=== PATIENT | female | born 1970 | race Caucasian/White ===

== ENCOUNTER 2016-04-21 05:02 | Inpatient (IN) | payer BC, OTHER ==
[~2016-04-21] VITALS: Ht 165.1 cm; Wt 54.4 kg
[~2016-04-21 05:02] MED LIST: HALOPERIDOL LACTATE 5 MG/ML 1 ML VIAL ONE; LORAZEPAM 2 MG/ML 1 ML VIAL ONE; WARF10TA4 PO; WARF7.5T4 PO
[2016-04-21 05:29] LABS: BASO % 0.3 %; BASO ABS # 0.02 K/uL (0-0.2); COMPLETE YES; EOS % 0.3 %; IG% 0.2 %; LYMPH % 24.6 %; LYMPH ABS # 1.54 K/uL (1.2-3.4); MEAN CELL VOLUME 88.2 fL (80-100); MEAN CORPUSCULAR HEMOGLOBIN 30.2 pg (25-34); MEAN CORPUSCULAR HGB CONC 34.3 g/dl (32-36); MEAN PLATELET VOLUME 9.2 fL (7.4-10.4); MONO % 8.8 %; NEUT % 65.8 %; PLATELET COUNT 335 K/uL (130-400); RED BLOOD COUNT 3.97 M/uL (4.2-5.4); WHITE BLOOD COUNT 6.27 K/uL (4.8-10.8)
--- NOTE | 2016-04-21 05:29 | EMERGENCY ROOM VISIT NOTE ---
History First contact with patient: 05:16 Chief Complaint: MENTAL HEALTH EVALUATION Stated Complaint: MENTAL HEALTH History of Present Illness The patient is a 45 year old female who presents to the Emergency Room with complaints of possible psychotic break. Patient reportedly has been working on a project for the past few days. Patient had a history of the same 5 years ago in which she had an episode similar to this after not sleeping 3-4 days to Endra being do. 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 Patient reportedly went to sleep and then woke up at 3 AM and was having tangential thoughts and saying strange things like "we must connect the dots to the black box." Patient will not provide me any further history. Per patient reportedly has a history of factor V Leiden and has been off her Coumadin for the past 3 or 4 days. Review of Systems Review of systems are limited due to patient's current mental state Past Medical/Surgical History Patient has a history of pulmonary embolus and history of DVT history factor V Leiden Social History Smoking Status: Never Smoker Current/Historical Medications No Active Prescriptions or Reported Meds Allergies Coded Allergies: Diphtheria Toxoid (Verified Allergy, Unknown, QUESTIONABLE CHILDHOOD RXN TO TETANUS/DIPHTHERIA/PERTUSSIS, 06/24/15) Replaces TETANUS/DIPHT Tetanus Toxoid (Verified Allergy, Unknown, QUESTIONABLE CHILDHOOD RXN TO TETANUS/DIPHTHERIA/PERTUSSIS, 06/24/15) Replaces TETANUS/DIPHT Physical Exam Vital Signs Date Time Temp Pulse Resp B/P Pulse Ox O2 Delivery O2 Flow Rate FiO2 04/21/16 05:09 119 Vital signs reviewed Physical Exam General alert conversant however unable to give me full history HEENT the within normal limits Heart regular rate and rhythm Lungs clear to auscultation bilaterally Soft abdomen nontender Extremities no clubbing cyanosis or edema Neuro alert nonfocal however he is currently yelling at staff Psych has tangential thoughts, we'll not provide me any further psychiatric history however does not state suicidal ideation Skin no rash Medical Decision & Procedures ER Provider Diagnostic Interpretation: CT of the brain - per radiology no intracranial hemorrhage or mass effect or midline shift Laboratory Results 04/21/16 05:13 Red Blood Count 3.97, Mean Corpuscular Volume 88.2, Mean Corpuscular Hemoglobin 30.2, Mean Corpuscular Hemoglobin Concent 34.3, Mean Platelet Volume 9.2, Neutrophils (%) (Auto) 65.8, Lymphocytes (%) (Auto) 24.6, Monocytes (%) (Auto) 8.8, Eosinophils (%) (Auto) 0.3, Basophils (%) (Auto) 0.3, Neutrophils # (Auto) 4.13, Lymphocytes # (Auto) 1.54, Monocytes # (Auto) 0.55, Eosinophils # (Auto) 0.02, Basophils # (Auto) 0.02 04/21/16 05:13 Test 04/21/16 05:13 04/21/16 05:47 04/21/16 05:50 White Blood Count 6.27 K/uL (4.8-10.8) Red Blood Count 3.97 M/uL (4.2-5.4) Hemoglobin 12.0 g/dL (12.0-16.0) Hematocrit 35.0 % (37-47) Mean Corpuscular Volume 88.2 fL (80-100) Mean Corpuscular Hemoglobin 30.2 pg (25-34) Mean Corpuscular Hemoglobin Concent 34.3 g/dl (32-36) Platelet Count 335 K/uL (130-400) Mean Platelet Volume 9.2 fL (7.4-10.4) Neutrophils (%) (Auto) 65.8 % Lymphocytes (%) (Auto) 24.6 % Monocytes (%) (Auto) 8.8 % Eosinophils (%) (Auto) 0.3 % Basophils (%) (Auto) 0.3 % Neutrophils # (Auto) 4.13 K/uL (1.4-6.5) Lymphocytes # (Auto) 1.54 K/uL (1.2-3.4) Monocytes # (Auto) 0.55 K/uL (0.11-0.59) Eosinophils # (Auto) 0.02 K/uL (0-0.5) Basophils # (Auto) 0.02 K/uL (0-0.2) RDW Standard Deviation 39.7 fL (36.4-46.3) RDW Coefficient of Variation 12.3 % (11.5-14.5) Immature Granulocyte % (Auto) 0.2 % Immature Granulocyte # (Auto) 0.01 K/uL (0.00-0.02) Prothrombin Time 11.4 SECONDS (9.0-12.0) Prothromb Time International Ratio 1.1 (0.9-1.1) Anion Gap 12.0 mmol/L (3-11) Estimated GFR () 106.6 Estimated GFR (Non- 91.9 BUN/Creatinine Ratio 9.2 (10-20) Calcium Level 8.6 mg/dl (8.5-10.1) Total Bilirubin 0.5 mg/dl (0.2-1) Direct Bilirubin 0.1 mg/dl (0-0.2) Aspartate Amino Transf (AST/SGOT) 13 U/L (15-37) Alanine Aminotransferase (ALT/SGPT) 18 U/L (12-78) Alkaline Phosphatase 44 U/L (45-117) Total Protein 7.0 gm/dl (6.4-8.2) Albumin 4.0 gm/dl (3.4-5.0) Thyroid Stimulating Hormone (TSH) 0.973 uIu/ml (0.300-4.500) Ethyl Alcohol mg/dL < 3.0 mg/dl (0-3) Bedside Glucose 121 mg/dl (70-90) Medications Administered Medications (Trade) Dose Ordered Sig/Chapis Route Start Time Stop Time Status Last Admin Dose Admin Lorazepam (Ativan Inj) 2 mg STK-MED ONCE .ROUTE 04/21/16 04:56 04/21/16 04:59 DC 04/21/16 04:56 2 MG Haloperidol Lactate (Haldol Inj) 10 mg STK-MED ONCE .ROUTE 04/21/16 04:56 04/21/16 04:59 DC 04/21/16 04:56 10 MG Medical Decision Psychotic break, anxiety, alteration in mental status, metabolic derangement Patient has been given Ativan and Haldol. I have spoken with her at bedside regarding the patient's evaluation. Patient will be evaluated by crisis , the patient's is petitioning for 302. I have spoken to the patient's at bedside at 6:20 AM, he is currently rating his summary and the patient will be evaluated by the crisis counselors for disposition. 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 Pulmonary (PCP) Patient Instructions My [facility]
[2016-04-21 05:38] LABS: INR 1.1 (0.9-1.1); PROTHROMBIN TIME (PATIENT) 11.4 SECONDS (9.0-12.0)
[2016-04-21 05:49] LABS: BLOOD UREA NITROGEN 7 mg/dl (7-18); CREATININE 0.77 mg/dl (0.60-1.20); GLUCOSE 142 mg/dl (70-99)
[2016-04-21 05:50] LABS: ALT/SGPT 18 U/L (12-78); AST/SGOT 13 U/L (15-37); BUN/CREATININE RATIO 9.2 (10-20); CALCIUM 8.6 mg/dl (8.5-10.1); CARBON DIOXIDE 23 mmol/L (21-32); CHLORIDE 106 mmol/L (98-107); SODIUM 141 mmol/L (136-145)
[2016-04-21] MEDS ORDERED: POTASSIUM CHLORIDE 10 MEQ TABCR PO STA (05:59)
[2016-04-21 06:00] LABS: ALKALINE PHOSPHATASE 44 U/L (45-117); THYROID STIMULATING HORMONE 0.973 uIu/ml (0.300-4.500)
[2016-04-21 06:25] LABS: URINE APPEARANCE CLEAR (CLEAR); URINE BILIRUBIN NEG (NEG); URINE COLOR YELLOW; URINE NITRITE NEG (NEG); URINE SPECIFIC GRAVITY 1.011 (1.000-1.030); UROBILINOGEN NEG (NEG)
[2016-04-21 06:35] LABS: MANUAL MICROSCOPIC REQUIRED? NO; REVIEW REQ? NO
--- NOTE | 2016-04-21 06:41 | DIAGNOSTIC IMAGING REPORT ---
HEAD CT NONCONTRAST CT DOSE: 537.48 mGy.cm HISTORY: Mental status change ams TECHNIQUE: Multiaxial CT images of the head were performed without the use of intravenous contrast. Comparison: None. Findings: The paranasal sinuses and mastoid air cells are clear. The calvarium and skull base are intact. The ventricles and sulci are within normal limits. There is no mass, hematoma, midline shift, or acute infarct. Impression: No acute intracranial abnormality. Electronically signed by: Alvin Sanchez M.D. 04/21/2016 6:40 AM Dictated Date/Time: 04/21/2016 6:39 AM
[2016-04-21 06:59] LABS: BENZODIAZEPINE, URINE NEG (NEG); COCAINE,URINE NEG (NEG); PHENCYCLIDINE, URINE NEG (NEG)
[2016-04-21] MEDS ORDERED: POTASSIUM CHLORIDE 10 MEQ TABCR ONE (09:03)
[2016-04-21 15:06] VITALS: O2SAT 98
--- NOTE | 2016-04-21 15:35 | EMERGENCY ROOM VISIT NOTE ---
ED Visit Note First contact with patient: 15:34 I received this patient at change of shift signout from Dr. Ribeiro. Please see her note for complete history and physical. The patient was medically cleared previously. She was awaiting final psychiatric clearance and disposition. The patient was evaluated by the nursing from [address] [place] [address]. She was felt to be a good candidate for voluntary admission and at this time she has been admitted to the mental health floor on [address] [place] [address].
[2016-04-21] MEDS ORDERED: LORAZEPAM 1 MG TAB PO PRN (15:45)
[2016-04-21] MEDS ORDERED: ALUMINUM/MAGNESIUM SUSP 30 ML UDC PO PRN (15:45)
[2016-04-21] MEDS ORDERED: BISMUTH SUBSALICYLATE PER ML OMNICELL CHARGE PO PRN (15:45)
[2016-04-21] MEDS ORDERED: ACETAMINOPHEN 325 MG TAB PO PRN (15:45)
[2016-04-21] MEDS ORDERED: SODIUM CHLORIDE 0.65% NA SOLN 45 ML (OCEAN) PRN (15:45)
[2016-04-21] MEDS ORDERED: HALOPERIDOL 5 MG TAB PO PRN (15:45)
[2016-04-21] MEDS ORDERED: hydrOXYzine HCL 25 MG TAB PO PRN ×2 (15:45)
[2016-04-21] MEDS ORDERED: MAGNESIUM HYDROXIDE SUSP 30 ML UDC PO PRN (15:45)
[2016-04-21 17:38] VITALS: BP 117/68; TEMP 37.1; BMI 20.0
--- NOTE | 2016-04-21 18:14 | HISTORY & PHYSICAL EXAMINATION ---
DATE OF ADMISSION: 04/21/2016 IDENTIFYING DATA: Nivia Chavez is a 45-year-old woman from [place], [place], admitted to our unit on a voluntary basis with psychotic behaviors impairing her ability to function outside of the hospital. Information is gathered from the patient, the electronic medical record, and the patient's , and considered to be reliable. CHIEF COMPLAINT: "I don't know why he brought me here." HISTORY OF PRESENT ILLNESS: Nivia Chavez is a 45-year-old woman with no past psych history of note, who was brought to the Emergency Room by her . 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 She has always been highly successful and energized, however recently she has been under additional stress and her behavior has become irregular. Apparently about 1 week ago, per the , they had a meeting with one of their partners in [place] about a particular computer project. The timeline for launch was moved up and this put additional strain on the patient. Her describes her as "obsessing" about it. The patient frequently travels to [place] where she has a condo at [facility]. She picked her up on her return flight on Monday and drove her home. He reports that she had very little sleep Monday, Monday and Monday night. When he picked her up, she was having an odd discussion about dots and boxes that did not connect to the conversation or the circumstances. She went to work on Monday and is reported to have done some minor procedures without problems. There was an indication from the that she had incorporated the word dot into one of her medical records. The became concerned about her behavior and her state of mind and worried that she would have an episode similar to 5 years ago at which time he said she did not sleep for 3 days straight and became confused and disorganized. At the time I see the patient, she has awoken from sleep. She is alert and for the most part cooperative. She is minimizing all symptoms, says she does not understand why people brought her here. She says that she remembers going to her father's house due to concerns about her father and his , her stepmother. She says her father was acting "crazy" and he called the police. When asked about the dots and boxes phrases, she indicates that these are metaphors for "solutions, programs, disease." She will not further elaborate. She also notes that when she was at the office, she noted that one of her staff had underlined a certain word in a documented and this caused her to feel suspicious, not understanding why the word would be underlined in red and was trying to figure it out. She indicates she has also been trying to "protect my assets from my " and says that they are , not living together and heading toward divorce. She denies that she has been under any additional stress from her computer work and actually minimizes this to the point of saying that she has not done any work on the computer program in weeks. She denies that she is having auditory or visual hallucinations. She says that her sleep and appetite are fine. She denies anxiety. She denies any problems with eating disordered behaviors, OCD. She denies any manic symptoms including racing thoughts, disturbed sleep, increase in goal directedness. She denies any euphoric mood. She denies suicidal thinking. She denies homicidal thinking. CURRENT MEDICATIONS: Lamisil. PAST PSYCHIATRIC HISTORY: The patient denies ever having seen a mental health professional, has never been hospitalized for mental health reasons, has never made a suicide attempt. PRIOR MEDICATION TRIALS: None. ACCESS TO GUNS: Denies. PAST MEDICAL HISTORY: 1. Factor V Leiden factor status post [place] filter. 2. Denies for personal history of head injuries or seizures. 3. Tobacco use -- none. FAMILY HISTORY: Denies for psychiatric issues, substance use or suicide. SUBSTANCE ABUSE HISTORY: The patient will drink alcohol "only rarely" and this means about 1 time per month. She has never had any problems with alcohol, never had any legal consequences as a result of alcohol. She denies the use of street drugs, organic substances, inhalants, abuse of over the counter medicines or prescription medicines now or ever in her life. Her drug screen is negative. 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 She has been to her for 7-8 years. She has no children. There are no legal concerns. Psychological trauma history is denied. MENTAL STATUS EXAMINATION: A 45-year-old woman with long dark hair that is slightly disarray. She is dressed in a sweater and jeans. She is somewhat sleepy and her eyes close at times during the interview. Gait and station are within normal limits. Motor behavior is unremarkable, no abnormal muscle movements. Speech is of normal rate, volume, and tone, although minimal. Affect is flat to irritable. Mood is "fine." Her thought process is organized and goal directed. She denies auditory or visual hallucinations but does endorse some paranoid thinking, specifically that she has to protect her assets from her , and that they are not living together and which the says is untrue. She denies suicidal or homicidal thinking. Today, she is fully oriented. Memory functions are intact. She is able to spell the word world forward and backward fluently. Fund of knowledge is intact. Her intelligence is estimated to be average to above average. Insight and judgment are currently limited. VITAL SIGNS: Temp 37.1, pulse 108, respirations 12, blood pressure 117/68, pulse ox 98% on room air. LABORATORIES: 1. CBC with diff -- notable only for slightly low RBCs 3.97, hematocrit 35.0. 2. Chem profile -- notable for potassium low at 3.0, anion gap 12.0, BUN-creatinine ratio 9.2, random glucose is 121 and 142. 3. TSH -- within normal limits at 0.973. 4. Toxicology -- negative. 5. Urinalysis -- positive for 3+ ketones, 1+ occult blood, 10-20 epithelials. 6. Coag studies -- within normal limits. IMAGING: Head CT -- no intracranial findings. REVIEW OF SYSTEMS: A full 10 systems has been reviewed and all found to be negative. PHYSICAL EXAMINATION: Exam performed by Dr. Aguillon in the Emergency Room last night has been reviewed and accepted for our purposes here on the mental health unit. PATIENT'S STRENGTHS AND NEEDS: 1. Strengths -- intelligence, successful in life ventures. 2. Needs -- life balance. RISK ASSESSMENT: 1. Risk factors -- , impaired sleep, lack of insight. 2. Protective factors -- no access to guns, no chronic mental illness, no comorbid medical conditions impairing recovery, no history of hospitalizations or suicide attempts. IMPRESSION: A 45-year-old woman admitted with psychotic symptoms. She received Haldol 10 mg and Ativan 2 mg in the ER and was able to sleep for an extended period and after that her estimated that she was 40% improved. She ultimately signed in on a voluntary basis as did not want to have her 302'd. At this point, she does not want to be on scheduled medicines but agrees to the use of p.r.n. medications if she cannot sleep or nurses interpret that her thinking appears disordered. We will order Haldol 5 mg q. 4 hours p.r.n. and Ativan 1 mg p.o. q. 4 hours p.r.n. We will ask the to visit again tomorrow to give his estimation about how close she is to baseline. DIAGNOSES: Psychosis, not otherwise specified. Differential includes delirium related to sleep disturbance, bipolar disorder. PLAN: Has been reviewed with Dr. La Huerta. Psychosis, not otherwise specified. -- Haldol 5 mg p.o. q. 4 hours p.r.n. -- Ativan 1 mg p.o. q. 4 hours p.r.n. -- Allow patient to sleep as much as possible. -- Will have visit tomorrow to estimate how close she is to baseline after 24 hours of sleep and treatment. INITIAL HOSPITAL CARE: [id number]. MTDD
--- NOTE | 2016-04-22 05:38 | EMERGENCY ROOM VISIT NOTE ---
ED Visit Note First contact with patient: 06:39 I received this pt in signout at the change of shift from Dr Aguillon, pending MH evaluation. Pt has been medically cleared. On my initial evaluation the pt was sleeping. I spoke with the pt's who feels that she requires sleep. Upon awakening several hours later, the pt was speaking with family members and "there" regarding a return to baseline. She was upset that she was in the ED, angry at the suggestion of inpatient admission. When pt was confronted about documenting "dots and boxes" in a medical record yesterday, she stated "because I was afraid this would happen." She also refers to seeing red dots on the metatarsals of a pt yesterday. Pt continues with disorganized thought, referring to a friend that was dropped off at a gas station the other day while explaining to us why this is happening to her. The pt is felt to be in need of inpatient evaluation and management. She was initially resistant to a 201 voluntary admission. Her had petitioned a 302 but requested that she was allowed to sleep and reassess. Pt was held in the ED for many hours due to family requests for sleep, many assessments from psych and myself. Pt was eventually evaluated by 3S nurse Hackett. Pt signed a 201 and was d/w Dr Huerta from psychiatry. Pt's family seems happy with this plan and agrees. Diagnosis: Acute Psychosis
[2016-04-22 06:48] VITALS: BP_SYST 112; BP_SYST 128; BP_DIAS 67; BP_DIAS 82; PULSE 65; PULSE 76; TEMP 36.8
--- NOTE | 2016-04-22 10:25 | Psychiatric Progress Notes ---
Progress Note Date of Service Apr 22, 2016. Interval History 45 yo female admitted voluntarily through the ER after presenting with impaired sleep and psychosis. Chief Complaint "Fine. I got some sleep.". Subjective Patient was seen & assessed interval progress reviewed with Treatment Team. The patient slept for over 12 hours last night. Today she says that she feels "fine". I review with her the information provided by her yesterday, specifically the conflicting information about being and protecting assets, which her says is not true. Her response is, "Well he doesn't like to admit it.". In terms of protecting her assets, she talks in very generic terms saying that that should have already happened today. I inform her that there is a meeting with her and classifications officer cc/cm today at 1300, to which she agrees. She denies SI/HI, aud/vis hallucinations and believes that she is back to normal, "I just needed some sleep". She agrees with her 's theory that she had been losing sleep, worrying about the computer project. Review of Systems Constitutional: + fatigue ENT: No dental problems, No hearing loss, No nasal symptoms, No problem reported, No sore throat, No tinnitus, No trouble swallowing, No unusual epistaxis Respiratory: No cough, No dyspnea at rest, No dyspnea on exertion, No hemoptysis, No problem reported, No shortness of breath, No sputum, No wheezing Cardiovascular: No PND, No chest pain, No claudication, No edema, No orthopnea , No palpitations, No problem reported Abdomen: No GI bleeding, No constipation, No diarrhea, No nausea, No pain, No problem reported, No vomiting Musculoskeletal: No calf pain, No joint pain, No muscle pain, No problem reported, No swelling Neurologic: No balance problems, No memory loss, No numbness/tingling, No paralysis, No problem reported, No vertigo, No weakness Integumentary: No bleeding, No color change, No itch, No new/changing skin lesions, No problem reported, No rash Sleep Information Total Hours of Sleep: 11.00 Meal Information Percent of Breakfast Consumed: 100 Percent of Dinner Consumed: 0 Mental Status Exam During interview pt is: guarded Appearance: appropriately dressed Motor behavior is: steady gait & station, no abnormal motor movements Speech: normal in rate, rhythm & volume Affect: blunted Mood is: other ("fine") Thought process: goal directed Thought content: paranoid Suicidal thought are: denied Homicidal thoughts are: denied Hallucinations: denies auditory, denies visual Cognition: memory grossly intact, attention grossly intact Intelligence estimated to be: average Insight: limited Judgement: limited Impression Admitted yesterday and has been able to get some sleep. Still appears guarded today, limiting what she is willing to say, and remains with paranoid themes about her marriage and assets. Meeting scheduled with and classifications officer cc/cm today. Will recommend psychiatric follow up. Not willing to take scheduled meds at this time. Continued Inpatient Care Inpatient care required due to the severity of her condition and risk that she will act based on delusional information. Plan (1) Brief psychotic disorder 04/22 - Continue haldol 5 mg. q 4 prn and ativan 1 mg po q4h prn psychosis/ agitation. Patient not willing to take scheduled meds - Family meeting with and classifications officer cc/cm today - Q 15 min checks for safety - Encourage participation in group and individual counseling - Recommend OP follow up - Reality orientation Visit Code E&M Code: 04178 Risk Factors Assessment : Yes /single/: No Higher / Fall in social status: No Access to guns: No Health problems: No Mental Health Diagnoses: No Substance use disorders: No Previous attempt: No Previous psychiatric stay: No Hopelessness: No Smoker: No Protective Factors Assessment : Yes Responsible for young children: No Employed: Yes Supportive family: Yes Data Vital Signs Last 24 Hrs: Date Time Temp Pulse Resp B/P Pulse Ox O2 Delivery O2 Flow Rate FiO2 04/22/16 06:48 36.8 65 14 112/67 76 128/82 04/21/16 17:38 37.1 12 117/68 04/21/16 15:06 108 12 117/68 98 Room Air Meds Administered Last 24 Hrs: Meds Administered (Past 24Hrs) Medications (Trade) Dose Ordered Sig/Chapis Route Start Time Stop Time Status Last Admin Dose Admin Lorazepam (Ativan Inj) 2 mg STK-MED ONCE .ROUTE 04/21/16 04:56 04/21/16 04:59 DC 04/21/16 04:56 2 MG Haloperidol Lactate (Haldol Inj) 10 mg STK-MED ONCE .ROUTE 04/21/16 04:56 04/21/16 04:59 DC 04/21/16 04:56 10 MG Lab Results Last 24 Hrs: 04/21/16 05:13 Red Blood Count 3.97, Mean Corpuscular Volume 88.2, Mean Corpuscular Hemoglobin 30.2, Mean Corpuscular Hemoglobin Concent 34.3, Mean Platelet Volume 9.2, Neutrophils (%) (Auto) 65.8, Lymphocytes (%) (Auto) 24.6, Monocytes (%) (Auto) 8.8, Eosinophils (%) (Auto) 0.3, Basophils (%) (Auto) 0.3, Neutrophils # (Auto) 4.13, Lymphocytes # (Auto) 1.54, Monocytes # (Auto) 0.55, Eosinophils # (Auto) 0.02, Basophils # (Auto) 0.02 04/21/16 05:13 Test 04/21/16 05:13 04/21/16 05:47 04/21/16 05:50 White Blood Count 6.27 K/uL (4.8-10.8) Red Blood Count 3.97 M/uL (4.2-5.4) Hemoglobin 12.0 g/dL (12.0-16.0) Hematocrit 35.0 % (37-47) Mean Corpuscular Volume 88.2 fL (80-100) Mean Corpuscular Hemoglobin 30.2 pg (25-34) Mean Corpuscular Hemoglobin Concent 34.3 g/dl (32-36) Platelet Count 335 K/uL (130-400) Mean Platelet Volume 9.2 fL (7.4-10.4) Neutrophils (%) (Auto) 65.8 % Lymphocytes (%) (Auto) 24.6 % Monocytes (%) (Auto) 8.8 % Eosinophils (%) (Auto) 0.3 % Basophils (%) (Auto) 0.3 % Neutrophils # (Auto) 4.13 K/uL (1.4-6.5) Lymphocytes # (Auto) 1.54 K/uL (1.2-3.4) Monocytes # (Auto) 0.55 K/uL (0.11-0.59) Eosinophils # (Auto) 0.02 K/uL (0-0.5) Basophils # (Auto) 0.02 K/uL (0-0.2) RDW Standard Deviation 39.7 fL (36.4-46.3) RDW Coefficient of Variation 12.3 % (11.5-14.5) Immature Granulocyte % (Auto) 0.2 % Immature Granulocyte # (Auto) 0.01 K/uL (0.00-0.02) Prothrombin Time 11.4 SECONDS (9.0-12.0) Prothromb Time International Ratio 1.1 (0.9-1.1) Anion Gap 12.0 mmol/L (3-11) Estimated GFR () 106.6 Estimated GFR (Non- 91.9 BUN/Creatinine Ratio 9.2 (10-20) Calcium Level 8.6 mg/dl (8.5-10.1) Total Bilirubin 0.5 mg/dl (0.2-1) Direct Bilirubin 0.1 mg/dl (0-0.2) Aspartate Amino Transf (AST/SGOT) 13 U/L (15-37) Alanine Aminotransferase (ALT/SGPT) 18 U/L (12-78) Alkaline Phosphatase 44 U/L (45-117) Total Protein 7.0 gm/dl (6.4-8.2) Albumin 4.0 gm/dl (3.4-5.0) Thyroid Stimulating Hormone (TSH) 0.973 uIu/ml (0.300-4.500) Ethyl Alcohol mg/dL < 3.0 mg/dl (0-3) Bedside Glucose 121 mg/dl (70-90) Urine Color YELLOW Urine Appearance CLEAR (CLEAR) Urine pH 6.0 (4.5-7.5) Urine Specific [place] 1.011 (1.000-1.030) Urine Protein NEG (NEG) Urine Glucose (UA) NEG (NEG) Urine Ketones 3+ (NEG) Urine Occult Blood 1+ (NEG) Urine Nitrite NEG (NEG) Urine Bilirubin NEG (NEG) Urine Urobilinogen NEG (NEG) Urine Leukocyte Esterase NEG (NEG) Urine WBC (Auto) 1-5 /hpf (0-5) Urine RBC (Auto) 0-4 /hpf (0-4) Urine Hyaline Casts (Auto) 1-5 /lpf (0-5) Urine Epithelial Cells (Auto) 10-20 /lpf (0-5) Urine Bacteria (Auto) NEG (NEG) Urine Opiates Screen NEG (NEG) Urine Methadone, Qualitative NEG (NEG) Urine Barbiturates NEG (NEG) Urine Phencyclidine (PCP) Level NEG (NEG) Ur Amphetamine/Methamphetamine NEG (NEG) MDMA (Ecstasy) Screen NEG (NEG) Urine Benzodiazepines Screen NEG (NEG) Urine Cocaine Metabolite NEG (NEG) Urine Marijuana (THC) NEG (NEG)
[2016-04-22 11:10] VITALS: BP 128/82; PULSE 65; TEMP 36.8; Ht 165.1 cm; Wt 54.4 kg
[2016-04-22] MEDS ORDERED: HLD5 PO (13:39)
[2016-04-22] MEDS ORDERED: ATV1 PO (13:39)
--- NOTE | 2016-04-22 13:56 | Discharge Instructions ---
Discharge Information Report Includes Report will include the: Discharge Instructions & Summary Admission Admission Date / Time: Apr 21, 2016 at 15:35 Reason for Admission: Psychosis Unsp Discharge Discharge Diagnosis / Problem: Brief psychotic episode Condition at Discharge: Good Discharge Goals Goal(s): Decrease discomfort, Prevent Disease Progression Activity Recommendations Activity Limitations: per Instructions/Follow-up section (Do not return to work until cleared by the undersigned, appt 04/27/16 2 pm) . Instructions / Follow-Up Instructions / Follow-Up . SPECIAL CARE INSTRUCTIONS: 1. Follow through with your scheduled aftercare appointments. If unable to keep an appointment, please call to reschedule. 2. Take your medication only as prescribed. Medication should not be changed or stopped without the approval of your doctor. In the event of worsening symptoms or concerns about side effects, contact your doctor immediately. 3. Utilize new healthy coping skills, anger management skills, and stress management skills learned during your hospitalization. Journal feelings and process them with a support person. Identify stressors or situations that may result in relapse, deterioration or inappropriate behaviors and develop a plan to deal with those issues. 4. If your coping skills are ineffective and you are in crisis, contact your outpatient providers for direction. If unable to reach your providers, please call the CAN HELP LINE AT or go to the closest Emergency Room. 5. Avoid alcohol and un-prescribed drugs. 6. You have been provided with the Mental Health Advance Directives Pamphlet for your review. AFTERCARE APPOINTMENTS: * Please call your insurance company prior to your scheduled appointment to confirm your aftercare providers are covered. Take your insurance information to your appointments. . Discharge / Aftercare Planning Primary Care Physician: Name: Dr. Gail Winters Psychiatrist: Name: none Therapist: Name Of Therapist: none Director Of Adult Epilepsy: Name: none . Follow-Up Care Plan for Follow-Up Care: The patient will see the undersigned within one week. Current Hospital Diet Patient's current hospital diet: Regular Diet Discharge Diet Recommended Diet: Regular Diet Procedures Procedures Performed: No Pending Studies Pending Studies at Discharge: No Medical Emergencies . Who to Call and When: Medical Emergencies: For questions or emergencies related to your hospital stay, please contact the Inpatient Behavioral Health Unit at [phone]. A transmission technician is on-call 29/08 for the Behavioral Health Unit for emergencies At any time you feel your situation is an emergency, you may also call 911 immediately. . Non-Emergent Contact Non-Emergency issues call your: Primary Care Provider, Psychiatrist Advance Directives Existing Advance Directive: No Do You Have an Existing Mental: No Existing Living Will: No Existing Power of Cell Operator: No Advance Directives Info Given: To Pt/S.O. Discharge Summary Admission HPI Per the Admitting provider: Please see attached H&P Hospital Course (1) Brief psychotic disorder 04/22 - Continue haldol 5 mg. q 4 prn and ativan 1 mg po q4h prn psychosis/ agitation. Patient not willing to take scheduled meds - Family meeting with and business office representative today - Q 15 min checks for safety - Encourage participation in group and individual counseling - Recommend OP follow up - Reality orientation Risk Factors Assessment : Yes /single/: No Higher / Fall in social status: No Access to guns: No Health problems: No Mental Health Diagnoses: No Substance use disorders: No Previous attempt: No Previous psychiatric stay: No Hopelessness: No Smoker: No Protective Factors Assessment : Yes Responsible for young children: No Employed: Yes Supportive family: Yes Day of Discharge Assessment COURSE OF HOSPITALIZATION: Patient admitted voluntarily through the ER after demonstrating odd behaviors and talk. provided information that she is highly driven and successful, working over 100 hrs per week. 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 He perceived her to obsess about it, losing sleep in the process, resulting in delirious behaviors and verbalizations about "dots and boxes" which are computer terms. Received haldol and ativan in the ER and was able to sleep which helped to clear her thoughts. She continued to sleep after admission to mental health, but did not receive any additional meds. Today she is denying aud/vis hallucinations, is talking coherently without references to dots and boxes, although some ideation that could be considered paranoid, about her and their relationship. Met with our social worker psychiatric, patient, her , her father and her business office representative to review events leading to admission. It was actually the father who placed the call to police which started the process of coming to the hospital. 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 Her today says that she is now back to her baseline and is comfortable taking her home. She is willing to take home some medications in the event she can't sleep or becomes disorganized again. I have asked the patient not to return to work until seen in my OP office next week to be sure that this brief psychotic episode is resolved, to which she agrees. Today the patient is casually and appropriately dressed and groomed. Gait and station WNL. eye contact in minimal but appropriate. Affect is flat and congruent with her irritability at being in the hospital. Speech is of normal rate volume and tone. thoughts are organized, goal directed and without overt evidence of thought disorder. Recent/remote memory intact per conversation. Intelligence estimated to be average. Insight and judgement improved over admission. Laboratory 04/21/16 05:13 Red Blood Count 3.97, Mean Corpuscular Volume 88.2, Mean Corpuscular Hemoglobin 30.2, Mean Corpuscular Hemoglobin Concent 34.3, Mean Platelet Volume 9.2, Neutrophils (%) (Auto) 65.8, Lymphocytes (%) (Auto) 24.6, Monocytes (%) (Auto) 8.8, Eosinophils (%) (Auto) 0.3, Basophils (%) (Auto) 0.3, Neutrophils # (Auto) 4.13, Lymphocytes # (Auto) 1.54, Monocytes # (Auto) 0.55, Eosinophils # (Auto) 0.02, Basophils # (Auto) 0.02 04/21/16 05:13 Test 04/21/16 05:13 04/21/16 05:47 04/21/16 05:50 White Blood Count 6.27 K/uL (4.8-10.8) Red Blood Count 3.97 M/uL (4.2-5.4) Hemoglobin 12.0 g/dL (12.0-16.0) Hematocrit 35.0 % (37-47) Mean Corpuscular Volume 88.2 fL (80-100) Mean Corpuscular Hemoglobin 30.2 pg (25-34) Mean Corpuscular Hemoglobin Concent 34.3 g/dl (32-36) Platelet Count 335 K/uL (130-400) Mean Platelet Volume 9.2 fL (7.4-10.4) Neutrophils (%) (Auto) 65.8 % Lymphocytes (%) (Auto) 24.6 % Monocytes (%) (Auto) 8.8 % Eosinophils (%) (Auto) 0.3 % Basophils (%) (Auto) 0.3 % Neutrophils # (Auto) 4.13 K/uL (1.4-6.5) Lymphocytes # (Auto) 1.54 K/uL (1.2-3.4) Monocytes # (Auto) 0.55 K/uL (0.11-0.59) Eosinophils # (Auto) 0.02 K/uL (0-0.5) Basophils # (Auto) 0.02 K/uL (0-0.2) RDW Standard Deviation 39.7 fL (36.4-46.3) RDW Coefficient of Variation 12.3 % (11.5-14.5) Immature Granulocyte % (Auto) 0.2 % Immature Granulocyte # (Auto) 0.01 K/uL (0.00-0.02) Prothrombin Time 11.4 SECONDS (9.0-12.0) Prothromb Time International Ratio 1.1 (0.9-1.1) Anion Gap 12.0 mmol/L (3-11) Estimated GFR () 106.6 Estimated GFR (Non- 91.9 BUN/Creatinine Ratio 9.2 (10-20) Calcium Level 8.6 mg/dl (8.5-10.1) Total Bilirubin 0.5 mg/dl (0.2-1) Direct Bilirubin 0.1 mg/dl (0-0.2) Aspartate Amino Transf (AST/SGOT) 13 U/L (15-37) Alanine Aminotransferase (ALT/SGPT) 18 U/L (12-78) Alkaline Phosphatase 44 U/L (45-117) Total Protein 7.0 gm/dl (6.4-8.2) Albumin 4.0 gm/dl (3.4-5.0) Thyroid Stimulating Hormone (TSH) 0.973 uIu/ml (0.300-4.500) Ethyl Alcohol mg/dL < 3.0 mg/dl (0-3) Bedside Glucose 121 mg/dl (70-90) Urine Color YELLOW Urine Appearance CLEAR (CLEAR) Urine pH 6.0 (4.5-7.5) Urine Specific [place] 1.011 (1.000-1.030) Urine Protein NEG (NEG) Urine Glucose (UA) NEG (NEG) Urine Ketones 3+ (NEG) Urine Occult Blood 1+ (NEG) Urine Nitrite NEG (NEG) Urine Bilirubin NEG (NEG) Urine Urobilinogen NEG (NEG) Urine Leukocyte Esterase NEG (NEG) Urine WBC (Auto) 1-5 /hpf (0-5) Urine RBC (Auto) 0-4 /hpf (0-4) Urine Hyaline Casts (Auto) 1-5 /lpf (0-5) Urine Epithelial Cells (Auto) 10-20 /lpf (0-5) Urine Bacteria (Auto) NEG (NEG) Urine Opiates Screen NEG (NEG) Urine Methadone, Qualitative NEG (NEG) Urine Barbiturates NEG (NEG) Urine Phencyclidine (PCP) Level NEG (NEG) Ur Amphetamine/Methamphetamine NEG (NEG) MDMA (Ecstasy) Screen NEG (NEG) Urine Benzodiazepines Screen NEG (NEG) Urine Cocaine Metabolite NEG (NEG) Urine Marijuana (THC) NEG (NEG) Total Time Total Time Spent (min): Greater than 30 minutes Total Time Included: examination of the patient, discharge planning, medication reconciliation, communication with other providers Tobacco Cessation at Discharge FDA approved Prescription: non-smoker
== END 2016-04-22 14:17 | disposition home or self-care (01) | DRG 885 ==
LOC: EDBD 05:02 → EEVIPCON 05:05 → C.EDA 05:05 → C.MHU 15:35
PROVIDERS: ADMIT Psychiatry & Neurology Child & Adolescent Psychiatry; ATTEND Psychiatry & Neurology Child & Adolescent Psychiatry
DX: F29 Unspecified psychosis not due to a substance or known physiological condition (principal); R45.1 Restlessness and agitation; Z86.2 Personal history of diseases of the blood and blood-forming organs and certain disorders involving the immune mechanism; Z95.828 Presence of other vascular implants and grafts